=== PATIENT | female | born 1990 | race Two or more races ===

== ENCOUNTER → 2017-11-09 | Emergency (ER) | payer OTHER ==
[~2017-11-09] VITALS: Ht 154.9 cm; Wt 68.9 kg
[~2017-11-09] MED LIST: KEFLEX500 MG PO; KETO10TA2 PO
== END | disposition home or self-care (01) ==
LOC: ER 22:37
DX: T18.0XXA Foreign body in mouth, initial encounter (principal); W26.8XXA Contact with other sharp object(s), not elsewhere classified, initial encounter; Y93.89 Activity, other specified; Y92.89 Other specified places as the place of occurrence of the external cause; Y99.8 Other external cause status